=== PATIENT | male | born 2000 | race Caucasian/White ===

== ENCOUNTER 2020-07-28 17:28 | Emergency (ER) | payer OTHER, MEDICAID, SELFPAY ==
[2020-07-28 18:14] VITALS: BP 117/65; PULSE 67; RESP 15; TEMP 36.6; O2SAT 97; BMI 18.8
--- NOTE | 2020-07-28 18:17 | ED_ITS ---
HPI - Headache General Chief Complaint: Headache Stated Complaint: MIGRAINE Time Seen by Provider: 07/28/20 19:08 Source: patient Mode of arrival: ambulatory Limitations: no limitations History of Present Illness HPI Narrative: 19-year-old male presents with 3 days of right-sided headache and eye pain. States that he does have a history of right-sided eye pain and headaches since he was a child, but this headache has not been relieved. Has only taken 1 dose of Tylenol which was yesterday which gave him mild relief. Does not complain of any other concerns at this time. MD elicited complaint: headache Onset (ago): day(s) (3) Onset description: gradually Location: right and retro-orbital Severity: moderate Pain scale (0-10): 6 Quality & Timing: aching and throbbing Exacerbating factors: exertion and light Relieving factors: nothing Context: occurred at rest Associated symptoms: none Treatments prior to arrival: acetaminophen Related Data Previous Rx's Medication Instructions Recorded vrfzyaixul-vlerluhhbuklv-yfug 1 cap PO Q8H PRN #7 cap 07/28/20 [Fioricet] Allergies Allergy/AdvReac Type Severity Reaction Status Date / Time No Known Allergies Allergy Verified 07/28/20 18:17 Review of Systems Review of Systems: Constitutional: No Fever, No Chills, positive headache ENT/Mouth: No Ear Pain, No Hoarseness, No sore throat Eyes: Positive right Eye Pain, No Swelling, No Redness, No Foreign Body Cardiovascular: No Chest Pain, No SOB Respiratory: No Cough, No Dyspnea Gastrointestinal: No Nausea, No Vomiting, No Diarrhea, No abdominal Pain Genitourinary: No Dysuria, No Hematuria Musculoskeletal: positive joint pain, No Myalgias, No Joint Swelling Skin: No Skin lacerations, No rash Neuro: No Weakness, No Numbness, No Paresthesias, No Loss of Consciousness, No Dizziness, No Headache Psych: No Anxiety/Panic, No Depression Heme/Lymph: no easy bruising, no Lymphadenopathy Endocrine: No Polyuria, No Polydipsia Yes all other systems are reviewed and are negative [facility] Past Medical History Medical History Concussion Surgical History No history of previous surgery Social History Social History Alcohol intake: never Smoking Status: Never smoker Use of substances other than those prescribed or required for medical reasons: No Advance Directives: No Advance Directives Information Provided: Yes Physical Exam Vital Signs: Vital Signs: Last Vital Signs Temp 98.1 F 07/28/20 20:09 Pulse 71 07/28/20 20:09 Resp 16 07/28/20 20:09 BP 111/51 L 07/28/20 20:09 Pulse Ox 100 07/28/20 20:09 Body Mass Index 18.8 Appearance: Alert. Oriented X3. No acute distress. Eyes: Pupils equal, round and reactive to light. PERRLA, EOMI, no pain on extraocular movements. Funduscopic exam is normal ENT: Pharynx normal. Neck: Normal inspection. Neck supple. CVS: Normal heart rate and rhythm. Pulses normal. Respiratory: No respiratory distress. Breath sounds normal. Abdomen: Soft and nontender. Skin: Skin warm and dry. Normal skin color. Normal skin turgor. Extremities: No lower extremity edema. Neuro: No motor deficit. No sensory deficit. Course Course Course Narrative: 19-year-old male presents with right-sided headache with eye pain. Has a prior history of this since childhood. We will give a dose of Tylenol and sumatriptan IM. Patient's grandmother called and stated that family members have been tested positive for COVID-19, we will test for COVID-19 PCR. He does understand that this test will take several days to return in that he must maintain social isolation per state and Federal guidelines. Patient verbalized understanding of and agrees to plan of care discharge home. We will give prescription for Fioricet and have patient follow-up with primary care physician for further workup for cluster headaches. MDM - Headache Differential Diagnosis Differential diagnosis: Likely migraine, tension headache and headache Discharge Plan Discharge Clinical Impression: Cluster headache Patient Disposition: Home, Self-Care Instructions: Cluster Headache (ED), Acute Headache (ED), Acute Headache in Children (ED), Cluster Headache in Children (ED), COVID-19 (Coronavirus Disease 2019) (ED) Additional Instructions: you were evaluated for headache that started on the right side of Of your head with vision problems. This is a typical cluster headache. You must follow-up the primary care physician for further testing. We prescribed you Fioricet to help control headaches. We also tested for COVID-19. Your test results should return in 4 days, will call you with your results. You must maintain social isolation according to sta te in Federal guidelines. It is your responsibility to maintain these guidelines. Thank you for choosing this emergency department for evaluation. Please follow-up with primary care physician as needed. Return to the emergency department for any new, concerning, or worsening symptoms. Prescriptions: New tkkngowrul-txiwwalekbiwd-oxve [Fioricet] 50-300-40 mg capsule 1 cap PO Q8H PRN (Reason: pain) Qty: 7 RF: 0 Interventions: ED Discharge Assessment Last Done: 07/28/20 20:18 Discharge Date/Time: 07/28/20 20:32
[2020-07-28] MEDS: Acetaminophen 325 MG TABLET 975 MG PO (18:52)
[2020-07-28 20:09] VITALS: BP 111/51; PULSE 71; RESP 16; TEMP 36.7; O2SAT 100
== END 2020-07-28 20:32 | disposition home or self-care (01) ==
PROVIDERS: Nurse Practitioner Family; Emergency Provider Emergency Medicine
DX: G44.009 Cluster headache syndrome, unspecified, not intractable (principal); Z20.828 Contact with and (suspected) exposure to other viral communicable diseases
CPT/HCPCS: 96372; 99284; J3030; U0003

== ENCOUNTER 2023-07-20 13:37 | Emergency (ER) | payer OTHER, MEDICAID, SELFPAY ==
--- NOTE | 2023-07-20 13:53 | ED.GENADULT ---
HPI - General Adult General Chief complaint: Wound/Laceration Stated complaint: R Index Lac Work Injury 07/20/23 Time Seen by Provider: 07/20/23 16:05 Source: patient Mode of arrival: ambulatory Limitations: no limitations History of Present Illness HPI narrative: Patient is a 22-year-old left-hand dominant male presenting to the emergency department with complaint of laceration to right hand. 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 He denies any decreased range of motion, denies any numbness or tingling. Unsure most recent Tdap. complaint: right hand laceration Onset (ago): hour(s) Location: right and upper extremity Severity: moderate Quality: aching Pain Consistency: constant Relieving factors: rest Exacerbating factors: movement Associated symptoms: denies other symptoms Treatments prior to arrival: other (bandage) Related Data Previous Rx's Medication Instructions Recorded qnroiguqkg-jxudsfglhnvjb-gscoadoz 1 cap PO Q8H PRN pain #7 caps 07/28/20 50 mg-300 mg-40 mg capsule (Fioricet) Allergies Allergy/AdvReac Type Severity Reaction Status Date / Time No Known Allergies Allergy Verified 07/28/20 18:17 Review of Systems Review of Systems: As per HPI. Yes all other systems are reviewed and are negative Constitutional: Constitutional: Reports as per HPI [facility] Past Medical History Medical History Concussion Surgical History No history of previous surgery Social History Social History Alcohol intake: never Advance Directives: No Advance Directives Information Provided: No Physical Exam ED Vital Signs: Vital Signs - 24 hr 07/20/23 13:55 Temperature 97.5 F Pulse Rate 73 Respiratory Rate 14 Blood Pressure 119/64 Pulse Oximetry 98 Oxygen Delivery Method Room Air BMI result Body Mass Index 21.1 Vital signs have been reviewed and appear to be correct. Blood pressure normal. Heart rate normal. Respiratory rate normal. Temperature normal. Oxygen saturation normal. Const General: cooperative, healthy appearing and no acute distress Orientation/consciousness: oriented to person, oriented to place, oriented to time and patient oriented x3 Limitations: no limitations HENMT Head: Yes normocephalic and Yes atraumatic Ears: external ears normal General nose exam: Normal external nose present Face and sinus: Yes face symmetric Mouth: oropharynx normal and moist mucous membranes Throat: Yes uvula midline Eyes Pupils: Equal, round and reactive pupils present Neck Neck: Yes normal visual inspection and Yes supple Resp Effort & Inspection: normal respiratory effort and able to speak in complete sentences Auscultation: clear to auscultation bilaterally Cardio Rate: regular rate Rhythm: regular rhythm Heart sounds: S1 normal heart sound present and S2 normal heart sound present GI Palpation (GI): Soft to palpation and nontender Auscultation: normoactive bowel sounds General: Yes no CVA tenderness Back/Spine/Pelvis Back: no CVA tenderness Skin General skin exam: elasticity normal and turgor normal Trauma: laceration (over 2nd MCP joint) right dorsal hand L-shaped (C-shaped), flap, superficial and motor nerve function intact Neuro General: oriented to person, oriented to place, oriented to time, patient oriented x3, moves all extremities, no focal motor deficits and CN's II-XI intact bilaterally Cranial nerves: Yes Equal, round and reactive pupils present Cognition (Neuro): normal cognition Extrem General: Yes full ROM, Yes no pedal edema and Yes no calf tenderness Psych Mental Status: mental status grossly normal Affect: normal affect Thought process: Normal thought process present Course Course Course Narrative: This is an RME: Additional HPI, ROS, PE not included below will be deferred to primary provider. 22-year-old male presents with right index laceration status post work related injury patient was cutting his obtain accidentally cut his finger. Tetanus status unclear Medications Administered Discontinued Medications Generic Name Dose Route Start Last Admin Trade Name Harryq PRN Reason Stop Dose Admin Acetaminophen 975 mg 07/20/23 16:34 07/20/23 16:41 Acetaminophen 325 Mg Tablet PO 07/20/23 16:35 975 mg ONCE ONE Administration Diphtheria/Tetanus/Acell Pertussis 0.5 ml 07/20/23 13:53 07/20/23 16:32 Diphth,Pertus(Acell),Tet Adult 0.5 Ml Syringe IM 07/20/23 13:54 0.5 ml .ONCE ONE Administration Lidocaine HCl 5 ml 07/20/23 16:37 07/20/23 16:42 Lidocaine Hcl 1 % Mpf 5 Ml Vial INFILTRATI 07/20/23 16:38 5 ml ONCE ONE Administration Procedures Laceration Laceration 1: Site: hand Side (If applicable): right Size (cm): 2 Description: flap Depth: simple, single layer Local Anesthetic: lidocaine 1% Amount of anesthesia used (mL): 2 Pre-repair: wound explored, irrigated extensively and deep structures intact Skin layer closed with: nylon Size (cm): 4-0 Number of sutures: 6 Technique: simple, interrupted Medical Decision Making Medical Decision Making [facility] Narrative: Patient is a 22-year-old left-hand dominant male presenting to the emergency department with complaint of laceration to right hand. On exam patient is awake, A+Ox3, VS WNL, afebrile, normal neurological exam without focal deficits, physical exam findings as above. Given reported symptoms and physical exam findings, initial differential includes laceration, tendon injury, nerve injury. Laceration repaired as per procedure note. Patient tolerated procedure well. Advised patient to keep dressing clean and dry for the next 24 hours, then change dressing in assess wound daily. Return precautions discussed at bedside. Advised patient to return for suture removal. Tdap updated. Patient verbalized understanding of and agreement with plan. Differential Diagnosis Differential Diagnoses: The differential diagnosis associated with the presentation includes As per MDM. External Record Review External record reviewed: Inpatient record, Office record and Outpatient record Discharge Plan Discharge Clinical Impression: Laceration of hand, right Patient Disposition: Home, Self-Care Instructions: Laceration (DC), Care For Your Stitches (DC), Stitches Removal (ED) Additional Instructions: You have been evaluated in the emergency department today for a laceration to your hand. Your laceration was repaired in the emergency department with sutures. Please keep the area surrounding the laceration clean and dry and keep dressing in place for the next 24 hours. After that please change the dressing and assess the wound daily. Keep the area out of direct sunlight for the next 6 months to help prevent scarring. You should have the sutures removed in 7-10 days. If you develop fever, redness, swelling at the site of your laceration, or thick yellow drainage please come back to the ER for a wound check. Your tetanus (Tdap) was updated in the emergency department today. Prescriptions: No Action yrkhqieywj-wzdebbtudzqyt-gaso [Fioricet] 50-300-40 mg capsule 1 cap PO Q8H PRN (Reason: pain) Qty: 7 0RF Stand Alone Forms: Work/School Release
[2023-07-20 13:55] VITALS: BP 119/64; PULSE 73; RESP 14; TEMP 36.4; O2SAT 98; BMI 21.1
[2023-07-20] MEDS: Diphth,Pertus(ACell),Tet Adult 0.5 ML SYRINGE IM (16:32)
[2023-07-20] MEDS: Acetaminophen 325 MG TABLET 975 MG PO (16:41)
[2023-07-20] MEDS: Lidocaine HCl 1 % MPF 5 ML VIAL INFILTRATI (16:42)
--- NOTE | 2023-07-20 16:43 | PC.NURSE ---
pt placed in betadine/saline bath prior to stitches being placed. Pt tolerating well
[2023-07-20 18:04] VITALS: BP 118/61; PULSE 77; RESP 16; TEMP 36.7; O2SAT 98
--- NOTE | 2023-07-20 18:05 | PC.NURSE ---
provider sutured laceration, and wrapped wound,vss, pt do be discharged
== END 2023-07-20 18:05 | disposition home or self-care (01) ==
PROVIDERS: Emergency Provider Emergency Medicine
DX: S61.411A Laceration without foreign body of right hand, initial encounter (principal); W26.0XXA Contact with knife, initial encounter; Y93.89 Activity, other specified; Y92.59 Other trade areas as the place of occurrence of the external cause; Y99.0 Civilian activity done for income or pay
CPT/HCPCS: 12001; 90471; 90715; 99284

== ENCOUNTER 2025-06-17 08:28 | Emergency (ER) | payer MEDICAID, SELFPAY ==
--- NOTE | ~2025-06-17 | XR_ITS ---
CLINICAL HISTORY: mid upper back pain, NKI 2 view chest x-ray. Comparison: None Findings: Normal lung volumes. Lungs are clear. No pneumothorax or pleural effusion. Heart size normal. No passive venous congestion. No midline shift or tracheal deviation. No acute fracture. Impression: 1. No acute cardiopulmonary disease. This document has been electronically signed by: Damien Cruz MD on 06/17/2025 10:55:58
[2025-06-17 08:32] VITALS: BP 120/58; PULSE 72; RESP 18; TEMP 36.6; O2SAT 98; BMI 19.7
--- NOTE | 2025-06-17 08:36 | ECG_ITS ---
Test Reason : mid upper back pain, NKI Blood Pressure : */* mmHG Vent. Rate : 68 BPM Atrial Rate : 68 BPM P-R Int : 128 ms QRS Dur : 96 ms QT Int : 370 ms P-R-T Axes : 61 71 57 degrees QTcB Int : 393 ms Normal sinus rhythm Normal ECG No previous ECGs available Referred By: Generic ED Physician Electronically Signed By: DISHA DALEY MD
--- OUTSIDE RECORDS SUMMARY | 2025-06-17 08:59 | XMS_ITS | Clinical Summary ---
[facility] Address [address] [place] [address] Care Team Providers Care Loss Prevention Representative Name Role Phone Unavailable Primary Care Provider Unavailabl e Medical History Medical History Date Comments Unspecified otitis media 05/23,09/24,03/25 DX:Un specified otitis media Allergic rhinitis 12/27 DX:Allergic rh initis Streptococcal pharyngitis 11/27 DX:Str eptococcal pharyngitis Family History Medical History Relation Name Comments Allergies Father seasonal Diabetes Maternal Grandfather Relation Name Status Comments Father Alive Bk Maternal Grandfather Mother Alive Pam Social History Tobacco Use Types Packs/Day Years Used Date Smoking Tobacco: Never Alcohol Use Standard Drinks/Week Comments Not Asked 0 (1 standard drink = 0.6 oz pur e alcohol) Sex and Gender Information Value Date Recorded Sex Assigned at Not on file Legal Sex Male 4:14 AM EST Gender Identity Not on file Sexual Orientation Not on file Obstetrics History Plan of Treatment Health Maintenance Due Date Last Done Comments HPV Vaccines (1 - Male 3-dos e series) 2015 DTaP,Tdap,and Td Vaccines (1 - Tdap) 2019 Hepatitis B Vaccines (1 of 3 - 19+ 3-dose series) 2019 Depression Screening 08/23/2024 COVID-19 Vaccine (1 - 2023-2 5 season) 2025 Influenza Vaccine (#1) 2025 RSV Immunization Adult Patie nts (1 - 1-dose 75+ series) 2075 HIB Vaccines Aged Out No longer eligi ble based on patient's age to complete this topic Hepatitis A Vaccines Aged Out No long er eligible based on patient's age to complete this topic IPV Vaccines Aged Out No longer eligi ble based on patient's age to complete this topic MMR Vaccines Aged Out No longer eligi ble based on patient's age to complete this topic Meningococcal ACWY Vaccine Aged Out N o longer eligible based on patient's age to complete this topic Meningococcal B Vaccine Aged Out No l onger eligible based on patient's age to complete this topic Pneumococcal Vaccine: Pediat rics (0 to 5 Years) and At-Risk Patients (6 to 49 Years) Aged Out No longer eligible b ased on patient's age to complete this topic RSV Immunization Patients Un malka 20 months Aged Out No longer eligible b ased on patient's age to complete this topic Varicella Vaccines Aged Out No longer eligible based on patient's age to complete this topic
--- NOTE | 2025-06-17 09:01 | ED_ITS ---
HPI - General Adult General Chief complaint: Back Pain/Injury Stated complaint: Back Pain No Injury Time Seen by Provider: 06/17/25 09:00 Source: patient Mode of arrival: ambulatory Limitations: no limitations History of Present Illness ED Provider: Janell Sánchez PA-C HPI narrative: This is 24 yo male who presents to the ED for back pain. He has a past medical history of concussion and cluster headache. He reports that he woke up this morning with 6/10 pain next to his right scapula. Reports having low back pain in the past but not upper back pain. 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 Endorses a lot of driving yesterday as he went to visit his girlfriend who lives 1 hour away. Started to feel a little muscle ache last night, but woke up with worse pain. Took tylenol this morning, which is helping a little bit. He is left handed. Denies chest pain, shortness of breath, nausea, vomiting. Onset (ago): hour(s) Location: back Related Data Previous Rx's ?Medication ?Instructions ?Recorded nouwkupkcu-olyllsjvnmpra-tndqsmqt 1 cap PO Q8H PRN sandra n #7 caps 07/28/20 50 mg-300 mg-40 mg capsule (Fioricet) cyclobenzaprine 5 mg tablet 5 mg PO TID PRN muscle spa sm 7 06/17/25 days #21 tabs Allergies Allergy/AdvReac Type Severity Reaction Status Date / Time No Known Allergies Allergy Verified 06/17/25 08:35 Review of Systems Constitutional: Constitutional: Reports as per HPI Eyes: Eyes: Reports as per HPI ENT: Reports as per HPI Cardiovascular: Cardiovascular: Reports as per HPI Respiratory: Respiratory: Reports as per HPI Gastrointestinal: Gastrointestinal: Reports as per HPI Genitourinary: Genitourinary: Reports as per HPI Musculoskeletal: Musculoskeletal: Reports as per HPI Integumentary/Breasts: Skin/Breast: Reports as per HPI Neurologic: Reports as per HPI Psychiatric: Psychiatric: Reports as per HPI Endocrine: Endocrine: Reports as per HPI Hematologic/Lymphatic: Hematologic/Lymphatic: Reports as per HPI Allergic/Immunologic: Allergic/Immunologic: Reports as per HPI PMFSH Past Medical History Attestation statement: The following information was validated with the patient. Source: old records reviewed and nursing notes reviewed Medical History Concussion Surgical History No history of previous surgery Social History Social History Alcohol intake: never Advance Directives: No Advance Directives Information Provided: No Physical Exam ED Vital Signs: Vital Signs - 24 hr 06/17/25 08:32 06/17/25 09:28 Temperature 97.8 F 97.8 F Pulse Rate 72 72 Respiratory Rate 18 18 Blood Pressure 120/58 L 120/58 L Pulse Oximetry 98 98 Oxygen Delivery Method Room Air Room Air BMI result Body Mass Index 19.7 Const General: healthy appearing, no acute distress, alert and awake Nutritional Appearance: average body habitus Orientation/consciousness: patient oriented x3 HENMT Head: Yes normal to inspection and Yes atraumatic Ears: hearing grossly normal bilaterally and external ears normal General nose exam: Normal external nose present, no nasal discharge noted and no epistaxis Face and sinus: Yes normal facial exam, No abrasion and No laceration Mouth: Normal oral and palatal mucosa present, no drooling and no muffled voice Eyes General: appearance normal, both eyes and all related structures Periorbital: periorbital findings normal Eyelids: Yes eyelids normal Conjunctivae: conjunctivae normal Pupils: Equal, round and reactive pupils present EOM: EOMs intact bilaterally Neck Neck: Yes normal visual inspection and Yes full ROM Resp Effort & Inspection: normal respiratory effort and able to speak in complete sentences Back/Spine/Pelvis Other: Tenderness to palpation of the right trap Neuro General: patient oriented x3 Cranial nerves: Yes Equal, round and reactive pupils present Cognition (Neuro): normal cognition Extrem General: Yes normal to inspection, Yes full ROM and Yes capillary refill normal Psych Appearance: grossly normal Mental Status: mental status grossly normal Affect: normal affect Attitude: cooperative Thought process: Normal thought process present Thought content: Normal thought content present Insight: Good insight present (Psych) Medications Administered Discontinued Medications Generic Name Dose Route Start Last Admin Trade Name Freq PRN Reason Stop Dose Admin Cyclobenzaprine HCl 5 mg 06/17/25 09:08 06/17/25 09:25 Cyclobenzaprine Hcl 5 Mg Tablet PO 06/17/25 09:09 5 mg ONCE ONE Administration Ketorolac Tromethamine 15 mg 06/17/25 09:10 06/17/25 09:25 Ketorolac Tromethamine 15 Mg/Ml Vial IM 06/17/25 09:11 15 mg ONCE ONE Administration Medical Decision Making Medical Decision Making MDM Narrative: Patient is a 24 year old assigned male at with a history of cluster headache presenting to the emergency department today with upper back pain / tightness. Patient's physical exam was as noted in the physical exam portion of this note and consistent with a muscle spasm. Patient's chest x-ray showed no acute process. I explained my physical exam findings as well as all test results to the patient. I answered all questions asked by the patient. I stressed the importance of the patient taking his medication as directed (either prescribed or as the over the counter packaging recommends). I stressed the importance of the patient following up with his primary care provider. I stressed the importance of the patient returning to the emergency department immediately if his symptoms were to worsen or if he were to develop any dizziness, shortness of breath, difficulty breathing, chest pain, blurry vision, loss of vision, nausea, vomiting, abdominal pain, fever, chills, back pain, or any other complaints. Patient verbalized agreement and understanding with this treatment plan and discharge. Differential Diagnosis Differential Diagnoses: The differential diagnosis associated with the presentation includes Muscle spasm Upper back pain MSK pain Admission/Observation Consideration of admission/observation: Escalation of care including admission/observation considered Patient would have been admitted to the hospital had his work up had any findings where hospital admission was appropriate and his clinical presentation warranted hospital admission. Independent Interpretation I performed an independent interpretation of an: Plain X-Ray Interpretation: My interpretation is in agreement with the radiologist's impression of this im aging study. Reason for Exam: mid upper back pain, NKI CLINICAL HISTORY: mid upper back pain, NKI 2 view chest x-ray. Comparison: None Findings: Normal lung volumes. Lungs are clear. No pneumothorax or pleural effusion. Heart size normal. No passive venous congestion. No midline shift or tracheal deviation. No acute fracture. Impression: 1. No acute cardiopulmonary disease. This document has been electronically signed by: Damien Cruz MD on 06/17/2025 10:55:58 Dictated By: Damien Cruz MD Signed By: Electronically signed by Damien Cruz MD 06/17/25 1056 Radiology Impression Discussion of test interpretation with radiology: I have reviewed the radiologist's reading. Prescription Management I considered prescription management with: Pain Medication (patient prescribed a muscle relaxer for his muscle spasm) Discharge Plan Discharge Clinical Impression: Muscle spasm Patient Disposition: Home, Self-Care Instructions: Muscle Spasm (ED) Additional Instructions: Your chest x-ray showed no acute process. Your exam is most consistent with a muscle spasm. Apply heat to the area and rest. IF you are prescribed home medications and/or you are taking over the counter medications at home - it is very important you continue to do so as prescribed / directed unless told otherwise. Follow up with your primary care provider. Return to the emergency department immediately if your symptoms worsen or if you develop any numbness, tingling, dizziness, shortness of breath, difficulty breathing, chest pain, blurry vision, loss of vision, nausea, vomiting, abdominal pain, fever, chills, back pain, or any other complaints. If you do not have a primary care provider - call any of the below numbers to establish and follow up with a primary care provider. [facility] Primary Care ([place]) [phone] [place] [address], [address] [facility] Primary Care ([address] [place]) [phone] [place] [address], [address] [facility], [address] [facility] Primary Care ([address] [place]) [phone] [place] [address], [address] [facility], [address] [facility] Primary Care ([place]) [phone] [place] [address] [address] [facility], [address] [facility] Family Medicine [phone] [address] [facility], [address] Please see the information below about our Patient Portal. If you are not yet enrolled in the [facility] Patient Portal, you will receive an enrollment email invitation following your visit to any [facility] setting. You may also self-enroll in the Patient Portal by visiting our website: [email or web address] The following information is required to access the Patient Portal: - Your [facility] Medical Record Number - Your personal home email address (must match what is in your electronic medical record, Registration staff can assist with this) - Name - Date of Capabilities of the Patient Portal: - Message some providers - View upcoming appointments - Access your health summary, medical history, and visit history - View current conditions and allergies - View procedure and lab results - View your medications, including guidelines, side effects, and precautions - Complete pre-appointment questionnaires requested by your provider - Ready summary reports of your office visits and procedures To access the Patient Portal Mobile Brian, follow these directions: - Search Check in the Brian Store or [employer] Store - Download the Brian - Search for [facility] - Enter your login/password Prescriptions: New cyclobenzaprine 5 mg tablet 5 mg PO TID PRN (Reason: muscle spasm) 7 Days Qty: 21 0RF No Action eebqgsarsl-fbufphomtumcl-eyks [Fioricet] 50-300-40 mg capsule 1 cap PO Q8H PRN (Reason: pain) Qty: 7 0RF Stand Alone Forms: Work/School Release Interventions: ED Discharge Assessment Last Done: 06/17/25 09:28 Discharge Date/Time: 06/17/25 09:29 Print Language: Maori
[2025-06-17 09:28] VITALS: BP 120/58; PULSE 72; RESP 18; TEMP 36.6; O2SAT 98
== END 2025-06-17 09:29 | disposition home or self-care (01) ==
PROVIDERS: Emergency Provider Emergency Medicine Emergency Medical Services
DX: M54.50 Low back pain, unspecified (principal); M62.838 Other muscle spasm; M54.6 Pain in thoracic spine; R07.89 Other chest pain
CPT/HCPCS: 71046; 93005; 96372; 99283; 99284; J1885

== ENCOUNTER → 2025-06-17 08:36 | Outpatient (BNV) | payer MEDICAID, SELFPAY | PROVIDERS: Emergency Provider Emergency Medicine Emergency Medical Services; Visit Provider Radiology Diagnostic Radiology | DX: M54.6 Pain in thoracic spine (principal) | CPT/HCPCS: 71046 ==

== ENCOUNTER → 2025-06-17 08:36 | Outpatient (BNV) | payer MEDICAID, SELFPAY | PROVIDERS: Emergency Provider Emergency Medicine Emergency Medical Services; Visit Provider Internal Medicine Cardiovascular Disease | DX: Z13.6 Encounter for screening for cardiovascular disorders (principal); M54.6 Pain in thoracic spine | CPT/HCPCS: 93010 ==